=== PATIENT | female | born 1955 | race Caucasian/White ===

== ENCOUNTER 2018-12-04 20:59 | Inpatient (IN) | payer OTHER ==
[~2018-12-04] VITALS: Ht 167.6 cm; Wt 48.0 kg
[~2018-12-04 20:59] MED LIST: CLON-412 PO; CLON2TAB3 PO; OMEP40CA3 PO; PLAVIX; VIT. D; [UNRECOGNIZED DRUG - CODE] PO
[2018-12-04 22:30] VITALS: BP 159/77; PULSE 69; RESP 18
[2018-12-04 23:30] VITALS: Ht 167.6 cm; Wt 48.0 kg
[2018-12-05] MEDS ORDERED: ONDANSETRON 4 MG INJ IV PRN (01:30)
[2018-12-05] MEDS ORDERED: ACETAMINOPHEN 325 MG TAB PO PRN (01:30)
[2018-12-05] MEDS ORDERED: IBUPROFEN 600 MG TAB PO PRN (01:30)
[2018-12-05] MEDS ORDERED: TRIAMCINOLONE ACET 0.1% ORAB 5 GM MM PRN (01:30)
[2018-12-05] MEDS: DEXTROSE 5%-0.9% NACL 1,000 ML IV SCH ×3 (01:34→15:29)
[2018-12-05] MEDS: ACET/BUTAL/CAFF TAB PO PRN (01:34)
[2018-12-05] MEDS: HYDROmorphONE 0.5 MG/0.5 ML SYG IV PRN ×5 (01:34→18:12)
[2018-12-05 02:00] VITALS: BP 155/73; PULSE 67; RESP 17
[2018-12-05] MEDS ORDERED: KETOROLAC 30 MG INJ ONE (02:12)
[2018-12-05] MEDS ORDERED: KETOROLAC 30 MG INJ IV PRN (02:30)
[2018-12-05] MEDS: METOCLOPRAMIDE 5 MG TAB PO PRN (05:41)
[2018-12-05] MEDS: PANTOPRAZOLE (EC) 40 MG TAB PO SCH (05:41)
[2018-12-05 08:00] VITALS: BP 129/64; PULSE 63; RESP 16
[2018-12-05] MEDS: NICOTINE (21 MG/24 HR) PATCH TRANSDERM SCH (09:00)
--- NOTE | 2018-12-05 10:48 | PSY ---
Date/Time of Note Date/Time of Note DATE: 12/05/18 TIME: 10:44 Psychiatric Subjective Eval Consent Pt consented to telemedicine: No Subjective Evaluation Patient location: inpatient History of present illness Patient is a 63-year-old female who is currently on the medical unit. On a [id number] evaluation, patient is mumbling to herself, laughing inappropriately responding to internal stimuli, however she denies any prior psychiatric problem got angry and states that she does not want to be evaluated. Patient states her son's girlfriend is Satan. She was very uncooperative with the interview and states medication is not an option because she does not have mental illness. Patient has very poor insight and poor judgment but contracted for safety Past psychiatric history Denies Hospitalization: other Allergies: Coded Allergies: codeine (Verified Allergy, Severe, 12/04/18) short of breathe hydrocodone (Verified Allergy, Severe, 12/04/18) Short of breathe ibuprofen (Verified Allergy, Severe, shortness of breath, 12/05/18) morphine (Verified Allergy, Severe, 12/04/18) short of breathe oxycodone (Verified Allergy, Severe, 12/04/18) short of breathe tetracycline (Verified Allergy, Severe, RASH, 12/04/18) short of breathe Sulfa (Sulfonamide Antibiotics) (Verified Allergy, Intermediate, SOB, 12/04/18) short of breathe. ketorolac (Verified Allergy, Unknown, 12/05/18) pt states she is also allergic to toradol but unable to state quincy reaction she had. Substance Abuse Substance use: other Substance abuse history: Yes Prior substance abuse treatmen: Yes Social History Marital status: other DPA/Conservatorship: No (Does not meet criteria for 5150) Psychiatric Objective Eval Review of Systems: Review of Systems: Not Applicable Physical Examination: Physical Examination: Not Applicable Appetite: Decreased Energy: Decreased Interest: Decreased Mental Status Examination: Appearance: Other Eye Contact: Fair Psychomotor Activity: Slow Behavior: Cooperative, Agitated Speech: Soft AFFECT: Libile Mood: Anxious Though Process: Linear Thought Content: Delusions Orientation: x3 Cognition: Alert Insight: Mild Attention Span: Distractible Laboratory Results Laboratory Tests Test 12/05/18 05:42 White Blood Count 9.7 10^3/ul Red Blood Count 3.68 10^6/ul Hemoglobin 6.1 g/dl Hematocrit 24.1 % Mean Corpuscular Volume 65.5 fl Mean Corpuscular Hemoglobin 16.6 pg Mean Corpuscular Hemoglobin Concent 25.3 g/dl Red Cell Distribution Width 21.2 % Platelet Count 192 10^3/UL Mean Platelet Volume fl Immature Granulocytes % 0.400 % Neutrophils % 60.8 % Segmented Neutrophils % (Manual) 64 % Band Neutrophils % (Manual) 3 % Lymphocytes % 26.4 % Lymphocytes % (Manual) 27 % Monocytes % 10.0 % Monocytes % (Manual) 5 % Eosinophils % 1.6 % Eosinophils % (Manual) 1 % Basophils % 0.8 % Nucleated Red Blood Cells % 0.0 /100WBC Immature Granulocytes # 0.040 10^3/ul Neutrophils # 5.9 10^3/ul Neutrophils # (Manual) 6.2 10^3/ul Band Neutrophils # 0.2 10^3/ul Lymphocytes (Manual) 2.6 10^3/ul Lymphocytes # 2.6 10^3/ul Monocytes # 1.0 10^3/ul Monocytes # (Manual) 0.4 10^3/ul Eosinophils # 0.2 10^3/ul Basophils # 0.1 10^3/ul Nucleated Red Blood Cells # 0.0 10^3/ul Platelet Estimate NORMAL Giant Platelets 8 % Hypochromasia 3+ Poikilocytosis 1+ Anisocytosis 3+ Microcytosis 3+ Sodium Level 140 mmol/L Potassium Level 3.8 mmol/L Chloride Level 108 mmol/L Carbon Dioxide Level 27 mmol/L Anion Gap 5 Blood Urea Nitrogen 20 mg/dl Creatinine 0.68 mg/dl Est Glomerular Filtrat Rate mL/min > 60 mL/min Glucose Level 108 mg/dl Calcium Level 8.6 mg/dl Total Bilirubin 0.2 mg/dl Direct Bilirubin 0.00 mg/dl Indirect Bilirubin 0.2 mg/dl Aspartate Amino Transf (AST/SGOT) 16 IU/L Alanine Aminotransferase (ALT/SGPT) 23 IU/L Alkaline Phosphatase 82 IU/L Total Protein 5.8 g/dl Albumin 3.0 g/dl Globulin 2.80 g/dl Albumin/Globulin Ratio 1.07 Assessment and Plan Assessment/Diagnosis Diagnosis Psychosis NOS Recommendation/Plan Medication Management No medication ordered, patient does not want any medication Multiple antipsychotics: No Psychotherapy Provide supportive therapy Discharge Disposition: Other Legal Status: Voluntary (Does not meet criteria for 5150) HENRRY TAI NP Dec 05, 2018 10:48
[2018-12-05 15:29] VITALS: BP 137/75; PULSE 72; RESP 18
--- NOTE | 2018-12-05 18:30 | QN ---
Documentation Comment pt seen and examined JOVANNY NUÑEZ MD Dec 05, 2018 18:30
[2018-12-05 19:37] VITALS: BP 115/64; PULSE 70; RESP 17
[2018-12-05] MEDS ORDERED: HYDROmorphONE 0.5 MG/0.5 ML SYG IV ONE (21:27)
[2018-12-05 22:59] VITALS: BP 117/63; PULSE 58; RESP 18
[2018-12-06] MEDS: HYDROmorphONE 0.5 MG/0.5 ML SYG IV PRN ×4 (00:12→15:21)
[2018-12-06 02:38] VITALS: BP 128/63; PULSE 51; RESP 18
[2018-12-06] MEDS: PANTOPRAZOLE (EC) 40 MG TAB PO SCH (05:22)
[2018-12-06] MEDS: METOCLOPRAMIDE 5 MG TAB PO PRN (05:36)
[2018-12-06] MEDS: DEXTROSE 5%-0.9% NACL 1,000 ML IV SCH ×3 (06:36→17:18)
--- NOTE | 2018-12-06 06:55 | HP ---
DATE OF ADMISSION: 12/04/2018 REASON FOR ADMISSION: Abdominal pain. HISTORY OF PRESENT ILLNESS: A 63-year-old female. History is obtained from the chart as the patient is very uncooperative in examination and history. The patient simply says to go out of the room and I even sent GI, Dr. Gonzalez, outside the room. I spoke to the brother over the phone at ____ and par tial history is obtained from him and also from the chart. A 63-year-old female with a past medical history of polysubstance abuse, long extensive history of drug addiction and multiple rehab units, [facility] admission in 2012 with a history of GERD, partial gastrectomy with infusion pump secondary to gastric ulcer, history of cholecystectomy, nicotine addiction, history of substance abuse, presented to the [facility] on 12/04 secondary to chronic abdominal pain. At that time, she was sayi ng she had mild nausea, no fevers, no vomiting. The patient was asking for pain medications there. The patient was noted to have sodium of 141, potassium 3.5, BUN of 24, creatinine 0.85, alkaline phos phatase 121. Troponin 0.044. Hemoglobin of 7.7, BUN of 24, creatinine 0.85, albumin 3.8, lipase was 504. The patient had a CT of the abdomen and pelvis without contrast that showed some over-distende d with debris, surgical sutures along the distal aspect of stomach with possible gastrojejunostomy, t hickening of the wall and anastomosis involving distal stomach and proximal bowel, probable previous left-sided hemicolectomy with additional anastomotic bowel sutures present, 2 mm ____ stone, upper po le of right kidney. The patient was kept n.p.o., started on IV fluids and was transferred for possib le pancreatitis. PAST MEDICAL HISTORY: 1. History of partial gastrectomy secondary to gastric ulcer 25 years ago. 2. History of cholecystectomy. 3. History of left hemicolectomy. 4. GERD. 5. History of sleep walking episodes as listed in the history. 6. History of TIAs. ALLERGIES: THE PATIENT HAS MULTIPLE ALLERGIES, LISTED : 1. SULFA. 2. ACETAMINOPHEN. 3. CODEINE. 4. HYDROCODONE. 5. KETOROLAC. 6. MORPHINE 7. OXYCODONE. 8. TETRACYCLINE. SOCIAL HISTORY: Per manager social responsibility records, the patient had been smoking cigarettes 1 to 2 packs per day. FAMILY HISTORY: Patient has a brother who lives in ____. His name is [place]. Spoke to her brother. Has a son, Ochoa, who has no contact with her. REVIEW OF SYSTEMS: The patient is not giving any meaningful history. PHYSICAL EXAMINATION: VITAL SIGNS: Blood pressure 137/75, afebrile, heart rate 72, respirations 18. The patient did not let me examine her. DIAGNOSTIC DATA: White count 9.7, hemoglobin 6.1, platelet count 192, white. BMP within normal limi t. LFT within normal limit. ASSESSMENT AND PLAN: A 63-year-old female who presented with: 1. Severe abdominal pain and nausea. The patient had elevated lipase as an outside hospital, but CT of the abdomen and pelvis also showed stomach over-distended with debris, surgical sutures along the distal aspect of stomach with possible gastrojejunostomy, thickening at the wall of the anastomosis involving distal stomach and proximal small bowel. 2. Severe anemia, which is microcytic. The patient does not give any meaningful history, not able t o obtain, if the patient has no history of any GI bleeding in the past or currently. 3. Smoking history. 4. Drug addiction history. 5. Possible psychosis. 6. Pancreatitis. PLAN: At this period of time, the patient is admitted to med-surg. The patient has been evaluated b y a psychiatrist, probably needs to be on antipsychotics. We will also check for drug tox. We will also get a CT of the head, B12, folic acid. Patient already received 1 unit of blood. The patient h ad refused GI evaluation. We will reevaluate the patient again, probably in a.m. Rest of the treatm ent will depend on the patient's hospitalization course. Dictated By: JOVANNY OROZCO/RAINA Conf#: [id number] DID#: [id number] CC: JODI MONTOYA MD;*End*
[2018-12-06 08:00] VITALS: BP 131/67; PULSE 62; RESP 16
[2018-12-06] MEDS: NICOTINE (21 MG/24 HR) PATCH TRANSDERM SCH (08:37)
[2018-12-06] MEDS: ACET/BUTAL/CAFF TAB PO PRN (10:09)
[2018-12-06 15:02] VITALS: BP 126/64; PULSE 56; RESP 18
--- NOTE | 2018-12-06 15:16 | PN ---
RICHIE YENA 12/06/18 1515: Date/Time of Note Date/Time of Note DATE: 12/06/18 TIME: 15:09 Assessment/Plan VTE Prophylaxis Risk score (from [facility]0 risk: 2 SCD applied (from [facility]): Yes Pharmacological prophylaxis: NA/contraindicated Pharm contraindication: blood coag disorder Lines/Catheters IV C[facility]ter Type (from [facility]): Peripheral IV Assessment/Plan Hospital Course 1. Severe abdominal pain and nausea. The patient had elevated lipase as an outside hospital, but CT of the abdomen and pelvis also showed stomach over- distended with debris, surgical sutures along the distal aspect of stomach with possible gastrojejunostomy, thickening at the wall of the anastomosis involving distal stomach and proximal small bowel. 2. Severe anemia, which is microcytic. The patient does not give any meaningful history, not able to obtain, if the patient has no history of any GI bleeding in the past or currently. 3. Smoking history. 4. Drug addiction history. 5. Psychosis, pt is disabled. 6. Pancreatitis. 7. Malnourishment 8. Patient refusing medication and GI evaluation. Non compliant Assessment/Plan -low iron level, low B12, folic acid -clear liquid -stool OB order -ENsure TID later -start iron supplements IV -DVT prophylaxis SCD bilaterally, not able to tolerate , pt has anemia -GI prophylaxis Protonix -fall precaution - med-surg. -c/w antipsychotics. - drug tox. unable to collect UA -CT of the head is normal -s/p PRBC 1 unit of blood. - refused GI evaluation. Result Diagram: 12/06/18 0418 12/06/18 0418 Results 24hrs Laboratory Tests Test 12/05/18 15:58 12/05/18 16:03 12/06/18 04:18 Absolute Reticulocyte Count 0.017 L Percent Reticulocyte Count 0.4 L White Blood Count 8.1 6.7 Red Blood Count 3.92 L 4.52 Hemoglobin 7.0 L 8.6 #L Hematocrit 26.6 L 31.2 L Mean Corpuscular Volume 67.9 L 69.0 L Mean Corpuscular Hemoglobin 17.9 L 19.0 L Mean Corpuscular Hemoglobin Concent 26.3 L 27.6 L Red Cell Distribution Width 21.4 H 22.0 H Platelet Count 152 # 174 Mean Platelet Volume 10.1 Immature Granulocytes % 0.200 0.400 Neutrophils % 55.0 58.8 Lymphocytes % 33.0 27.7 Monocytes % 8.9 9.7 Eosinophils % 2.2 2.4 Basophils % 0.7 1.0 Nucleated Red Blood Cells % 0.0 0.0 Immature Granulocytes # 0.020 0.030 Neutrophils # 4.4 3.9 Lymphocytes # 2.7 1.9 Monocytes # 0.7 0.7 Eosinophils # 0.2 0.2 Basophils # 0.1 0.1 Nucleated Red Blood Cells # 0.0 0.0 Sodium Level 137 Potassium Level 3.6 Chloride Level 108 Carbon Dioxide Level 24 Anion Gap 5 Blood Urea Nitrogen 12 Creatinine 0.60 Est Glomerular Filtrat Rate mL/min > 60 Glucose Level 97 Calcium Level 8.5 Phosphorus Level 3.5 Magnesium Level 1.8 Subjective 24 Hr Interval Summary Free Text/Dictation tired Respiratory: no complaints; No pain, No cough, No pleuritic pain, No shortness of breath, No sputum, No wheezing, No other Gastrointestinal: pain Genitourinary: no complaints Skin: no complaints Psychological: no complaints Exam/Review of Systems Exam Vitals Vital Signs Date Temp Pulse Resp B/P (MAP) Pulse Ox O2 O2 Flow FiO2 Time Delivery Rate 12/06/18 98.9 56 18 126/64 97 Room Air 15:02 (84) Intake and Output 12/05/18 12/05/18 12/06/18 1515:00 23:00 07:00 IntakeIntake Total 650 ml 600 ml 1100 ml BalanceBalance 650 ml 600 ml 1100 ml Constitutional: alert, oriented (x2, missed year) Head: other (mauth laceration in corners) Neck: supple Respiratory: diminished breath sounds Cardiovascular: regular rate and rhythm Gastrointestinal: soft Musculoskeletal: muscle weakness Results Result Diagram: 12/06/18 0418 12/06/18 0418 Results 24hrs Laboratory Tests Test 12/05/18 15:58 12/05/18 16:03 12/06/18 04:18 Absolute Reticulocyte Count 0.017 L Percent Reticulocyte Count 0.4 L White Blood Count 8.1 6.7 Red Blood Count 3.92 L 4.52 Hemoglobin 7.0 L 8.6 #L Hematocrit 26.6 L 31.2 L Mean Corpuscular Volume 67.9 L 69.0 L Mean Corpuscular Hemoglobin 17.9 L 19.0 L Mean Corpuscular Hemoglobin Concent 26.3 L 27.6 L Red Cell Distribution Width 21.4 H 22.0 H Platelet Count 152 # 174 Mean Platelet Volume 10.1 Immature Granulocytes % 0.200 0.400 Neutrophils % 55.0 58.8 Lymphocytes % 33.0 27.7 Monocytes % 8.9 9.7 Eosinophils % 2.2 2.4 Basophils % 0.7 1.0 Nucleated Red Blood Cells % 0.0 0.0 Immature Granulocytes # 0.020 0.030 Neutrophils # 4.4 3.9 Lymphocytes # 2.7 1.9 Monocytes # 0.7 0.7 Eosinophils # 0.2 0.2 Basophils # 0.1 0.1 Nucleated Red Blood Cells # 0.0 0.0 Sodium Level 137 Potassium Level 3.6 Chloride Level 108 Carbon Dioxide Level 24 Anion Gap 5 Blood Urea Nitrogen 12 Creatinine 0.60 Est Glomerular Filtrat Rate mL/min > 60 Glucose Level 97 Calcium Level 8.5 Phosphorus Level 3.5 Magnesium Level 1.8 Medications Medication Current Medications Nicotine (Nicoderm 21 Mg/ 24hr) 1 patch DAILY TRANSDERM ; Start 12/05/18 at 09:00 Pantoprazole (Protonix Tab) 40 mg DAILY@06 PO Last administered on 12/06/18 05:22; Admin Dose 40 MG; Start 12/05/18 at 06:00 Metoclopramide HCl (Reglan) 5 mg Q8 PRN PO NAUSEA AND/OR VOMITING Last administered on 12/06/18 05:36; Admin Dose 5 MG; Start 12/05/18 at 01:30 Acetaminophen/ Butalbital/ Caffeine (Fioricet) 1 tab DAILY PRN PO migraine Last administered on 12/06/18 10:09; Admin Dose 1 TAB; Start 12/05/18 at 01:30 Hydromorphone HCl (Dilaudid) 0.5 mg Q4H PRN IV SEVERE PAIN LEVEL 7-10 Last administered on 12/06/18 08:38; Admin Dose 0.5 MG; Start 12/05/18 at 01:30 Dextrose/Sodium Chloride 1,000 ml @ 100 mls/hr Q10H IV Last administered on 12/06/18 06:36; Admin Dose 100 MLS/HR; Start 12/05/18 at 01:30 Ondansetron HCl (Zofran Inj) 4 mg Q6H PRN IV NAUSEA AND/OR VOMITING; Start 12/05/18 at 01:30 Triamcinolone Acetonide (Kenalog In Orabase) 1 applic DAILY PRN MM dentures; Start 12/05/18 at 01:30 Miscellaneous Information Patients own medicat... BID@10,16 XX ; Start 12/05/18 at 10:00 JOVANNY NUÑEZ MD 12/06/18 1706: Assessment/Plan Assessment/Plan Assessment/Plan PT SEEN PT HAS FLAT EFFECT, REFUSING US TO EXAMINED HER, DOES NOT GIVE ANY HISTORY PT NEED PSCY MEDS ADJUSTED BEFORE ANY MEDICAL TREATMENT PANCREATITIS ?? DC NARCOTICS ? ADDCITED TO NARCOTICS PER BROTHER Result Diagram: 12/06/18 0418 12/06/18 0418 MARGUERITE YEN Dec 06, 2018 15:15 JOVANNY NUÑEZ MD Dec 06, 2018 17:06
[2018-12-06] MEDS: CYANOCOBALAMIN 500 MCG TAB PO SCH (15:30)
[2018-12-06] MEDS: SOD FERRIC GLUC COMPLX 125 MG in SOD CHLORIDE 0.9% 100 ML IVPB SCH (17:18)
[2018-12-06] MEDS ORDERED: ACETAMINOPHEN 325 MG TAB PO PRN (17:30)
[2018-12-06 19:44] VITALS: BP 131/63; PULSE 53; RESP 17
[2018-12-07 01:58] VITALS: BP 124/54; PULSE 53; RESP 17
[2018-12-07] MEDS: DEXTROSE 5%-0.9% NACL 1,000 ML IV SCH ×2 (03:49→13:20)
[2018-12-07] MEDS: PANTOPRAZOLE (EC) 40 MG TAB PO SCH (06:27)
[2018-12-07] MEDS: CYANOCOBALAMIN 500 MCG TAB PO SCH (08:08)
[2018-12-07] MEDS: NICOTINE (21 MG/24 HR) PATCH TRANSDERM SCH (08:10)
[2018-12-07 08:52] VITALS: BP 148/66; PULSE 56; RESP 18
[2018-12-07] MEDS ORDERED: POTASSIUM CHLORIDE 20 MEQ POWDER FOR ORAL SOLN PO ONE (11:00)
--- NOTE | 2018-12-07 11:23 | PN ---
Date/Time of Note Date/Time of Note DATE: 12/07/18 TIME: 11:02 Assessment/Plan VTE Prophylaxis Risk score (from [facility])>0 risk: 2 SCD applied (from [facility]): No SCD contraindicated: low risk/ambulating Pharmacological prophylaxis: NA/contraindicated Pharm contraindication: anticoag not tolerated Lines/Catheters IV [facility] Type (from [email or web address] Peripheral IV Assessment/Plan Hospital Course 1. Severe abdominal pain and nausea. No abdominal pain, no nausea. The patient had elevated lipase as an outside hospital, but CT of the abdomen and pelvis also showed stomach over-distended with debris, surgical sutures along the distal aspect of stomach with possible gastrojejunostomy, thickening at the wall of the anastomosis involving distal stomach and proximal small bowel . Hx of 2 abdominal surgeries , more likely Joann --Y gastrostomy 2. Severe anemia, which is microcytic. C/w ferrlicit, iron supplements 3. Smoking history, on Nicotine patch 4. Drug addiction history. 5. Hx of cholecystectomy 6. Pancreatitis. 7. Malnourishment 8. Patient refusing medication and GI evaluation. Non compliant 9. Hx of baclofen, or other pump Assessment/Plan -stool OB -constipation 2 days pt id non copliant -pt is homeless, looking for placement with Nurse help -potassium supplement once -advance diet to full, then to soft -DVT prophylaxis SCD bilaterally -GI prophylaxis Protonix PO/IV -fall precaution -Discussed diagnosis, treatment, risks benefits, side effects and alternate treatment. -Medication, their effects and side effects including metabolic, affect on heart were discussed. -Compliance was addressed. -Care coordinated with Dr Chavez Result Diagram: 12/07/18 0424 12/07/18 0424 Results 24hrs Laboratory Tests Test 12/07/18 04:24 White Blood Count 5.8 Red Blood Count 4.64 Hemoglobin 8.8 L Hematocrit 32.1 L Mean Corpuscular Volume 69.2 L Mean Corpuscular Hemoglobin 19.0 L Mean Corpuscular Hemoglobin Concent 27.4 L Red Cell Distribution Width 22.4 H Platelet Count 196 Mean Platelet Volume 10.1 Immature Granulocytes % 0.300 Neutrophils % 61.4 Lymphocytes % 23.7 Monocytes % 9.5 Eosinophils % 4.1 Basophils % 1.0 Nucleated Red Blood Cells % 0.7 H Immature Granulocytes # 0.020 Neutrophils # 3.6 Lymphocytes # 1.4 Monocytes # 0.6 Eosinophils # 0.2 Basophils # 0.1 Nucleated Red Blood Cells # 0.0 Sodium Level 140 Potassium Level 3.4 L Chloride Level 112 H Carbon Dioxide Level 22 Anion Gap 6 Blood Urea Nitrogen 9 Creatinine 0.63 Est Glomerular Filtrat Rate mL/min > 60 Glucose Level 115 Calcium Level 8.4 Subjective 24 Hr Interval Summary Free Text/Dictation Constitutional: No fever, cough or chills. EYE: No eye disease. No visual problems. CARDIOVASCULAR: No chest pain. No Tachycardia. No Palpitation. RESPIRATORY: No breathing problems. No COPD or disease of respiration. GASTROINTESTINAL: No Nausea. No Vomiting. No constipation. stool 12/05/2018 Endocrine: No excessive thirst, No polyuria, No hot intolerance. No cold intolerance. MUSCULO-SKELETAL: No bone or Joint disease. NEUROLOGICAL: Alert oriented in person, place, time and situation. No Headache, Confusion. No Seizures. No problem with balance. Exam/Review of Systems Exam Vitals Vital Signs Date Temp Pulse Resp B/P (MAP) Pulse Ox O2 O2 Flow FiO2 Time Delivery Rate 12/07/18 98.0 56 18 148/66 96 08:52 (93) 12/06/18 Room Air 19:44 Intake and Output 12/06/18 12/06/18 12/07/18 1515:00 23:00 07:00 IntakeIntake Total 1000 ml 1118 ml BalanceBalance 1000 ml 1118 ml Exam No acute distress, no events overnight. Eyes: anicteric, EOM's intact, some pallor Nose: no rhinorrhea Neck: supple, no thyromegaly, no carotid bruits Lungs: clear bilaterally, decreased. CVS: regular rate and rhythm, no murmurs Abdomen: soft, bowel sounds present, no hepatosplenomegally, no masses, no rebound or guarding, surgical scars. Rectal: differed. External genitalia: no lesions. Extremities: no edema, DP palpable Neuro: alert and oriented x 3 Gait: normal Motor strength: 4+/4+ Sensory exam is normal Deep tendon reflexes: normal, Babisky reflexes are absent bilaterally Skin: no lesions Results Results 24hrs Laboratory Tests Test 12/07/18 04:24 White Blood Count 5.8 Red Blood Count 4.64 Hemoglobin 8.8 L Hematocrit 32.1 L Mean Corpuscular Volume 69.2 L Mean Corpuscular Hemoglobin 19.0 L Mean Corpuscular Hemoglobin Concent 27.4 L Red Cell Distribution Width 22.4 H Platelet Count 196 Mean Platelet Volume 10.1 Immature Granulocytes % 0.300 Neutrophils % 61.4 Lymphocytes % 23.7 Monocytes % 9.5 Eosinophils % 4.1 Basophils % 1.0 Nucleated Red Blood Cells % 0.7 H Immature Granulocytes # 0.020 Neutrophils # 3.6 Lymphocytes # 1.4 Monocytes # 0.6 Eosinophils # 0.2 Basophils # 0.1 Nucleated Red Blood Cells # 0.0 Sodium Level 140 Potassium Level 3.4 L Chloride Level 112 H Carbon Dioxide Level 22 Anion Gap 6 Blood Urea Nitrogen 9 Creatinine 0.63 Est Glomerular Filtrat Rate mL/min > 60 Glucose Level 115 Calcium Level 8.4 Medications Medication Current Medications Nicotine (Nicoderm 21 Mg/ 24hr) 1 patch DAILY TRANSDERM ; Start 12/05/18 at 09:00 Pantoprazole (Protonix Tab) 40 mg DAILY@06 PO Last administered on 12/07/18at 06:27; Admin Dose 40 MG; Start 12/05/18 at 06:00 Metoclopramide HCl (Reglan) 5 mg Q8 PRN PO NAUSEA AND/OR VOMITING Last administered on 12/06/18at 05:36; Admin Dose 5 MG; Start 12/05/18 at 01:30 Acetaminophen/ Butalbital/ Caffeine (Fioricet) 1 tab DAILY PRN PO migraine Last administered on 12/06/18at 10:09; Admin Dose 1 TAB; Start 12/05/18 at 01:30 Dextrose/Sodium Chloride 1,000 ml @ 100 mls/hr Q10H IV Last administered on 12/07/18at 03:49; Admin Dose 100 MLS/HR; Start 12/05/18 at 01:30 Ondansetron HCl (Zofran Inj) 4 mg Q6H PRN IV NAUSEA AND/OR VOMITING; Start 12/05/18 at 01:30 Triamcinolone Acetonide (Kenalog In Orabase) 1 applic DAILY PRN MM dentures; Start 12/05/18 at 01:30 Miscellaneous Information Patients own medicat... BID@10,16 XX ; Start 12/05/18 at 10:00 Ferric Sodium Gluconate Complex 125 mg/Sodium Chloride 110 ml @ 110 mls/hr DAILY@1300 IVPB Last administered on 12/06/18at 17:18; Admin Dose 110 MLS/HR; Start 12/06/18 at 17:00; Stop 12/10/18 at 13:59 Cyanocobalamin (Vitamin B12) 500 mcg DAILY PO ; Start 12/06/18 at 15:30 Acetaminophen (Tylenol Tab) 650 mg Q4H PRN PO MILD PAIN(1-3)OR ELEVATED TEMP Last administered on 12/07/18at 02:05; Admin Dose 650 MG; Start 12/06/18 at 17:30 MARGUERITE YEN Dec 07, 2018 11:19
[2018-12-07] MEDS: ACET/BUTAL/CAFF TAB PO PRN ×2 (11:35→23:31)
[2018-12-07] MEDS: METOCLOPRAMIDE 5 MG TAB PO PRN ×2 (11:35→17:17)
[2018-12-07] MEDS: SOD FERRIC GLUC COMPLX 125 MG in SOD CHLORIDE 0.9% 100 ML IVPB SCH (13:12)
[2018-12-07 15:11] VITALS: BP 142/67; PULSE 53; RESP 20
[2018-12-07] MEDS: CREON (12k-38k-60k) 1 CAP PO SCH (18:20)
[2018-12-07 20:11] VITALS: BP 149/70; PULSE 67; RESP 18
[2018-12-08 01:36] VITALS: BP 156/78; PULSE 70; RESP 18
[2018-12-08] MEDS: PANTOPRAZOLE (EC) 40 MG TAB PO SCH (05:55)
[2018-12-08] MEDS: NICOTINE (21 MG/24 HR) PATCH TRANSDERM SCH (07:48)
[2018-12-08] MEDS: CYANOCOBALAMIN 500 MCG TAB PO SCH (07:48)
[2018-12-08] MEDS: CREON (12k-38k-60k) 1 CAP PO SCH ×3 (07:53→17:57)
[2018-12-08] MEDS: METOCLOPRAMIDE 5 MG TAB PO PRN (07:53)
[2018-12-08 08:00] VITALS: PULSE 75; RESP 18
[2018-12-08] MEDS: ACET/BUTAL/CAFF TAB PO PRN (11:09)
--- NOTE | 2018-12-08 12:12 | PN ---
Date/Time of Note Date/Time of Note DATE: 12/08/18 TIME: 12:12 Assessment/Plan VTE Prophylaxis Risk score (from Nsg)>0 risk: 2 SCD applied (from Ns): No SCD contraindicated: low risk/ambulating Pharmacological prophylaxis: NA/contraindicated Pharm contraindication: low risk/ambulating Lines/Catheters IV Catheter Type (from Nrs): Peripheral IV Assessment/Plan Hospital Course 1. Severe abdominal pain and nausea. No abdominal pain, no nausea right now, tolerating soft diet foot. The patient had elevated lipase as an outside hospital, but CT of the abdomen and pelvis also showed stomach over-distended with debris, surgical sutures along the distal aspect of stomach with possible gastrojejunostomy, thickening at the wall of the anastomosis involving distal stomach and proximal small bowel. Hx of 2 abdominal surgeries , more likely Joann --Y gastrostomy 2. Severe anemia, which is microcytic. C/w ferrlicit, iron supplements 3. Smoking history, on Nicotine patch. Refused 4. Drug addiction history. 5. Hx of cholecystectomy 6. Pancreatitis, resolved. 7. Malnourishment 8. Patient refusing medication and GI evaluation. Non compliant 9. Hx of baclofen, or other pump Assessment/Plan -stool OB pending Patient is ambulating Lipase is normal Lab work reviewed Social service home for homelessness Patient has soft diet food tolerated well -constipation 2 days, resolved -pt is homeless, looking for placement with Nurse help -potassium supplement once -DVT prophylaxis SCD bilaterally -GI prophylaxis Protonix PO/IV -fall precaution -Discussed diagnosis, treatment, risks benefits, side effects and alternate treatment. -Medication nicotine patch, their effects and side effects including metabolic, affect on heart were discussed. -Compliance for non-smoking in hospital was addressed. -Care coordinated with Dr Chavez Result Diagram: 12/08/188 12/08/18427 Results 24hrs Laboratory Tests Test 12/08/18 04:28 12/08/18 05:51 White Blood Count 10.5 # Red Blood Count 4.73 Hemoglobin 9.0 L Hematocrit 33.1 L Mean Corpuscular Volume 70.0 L Mean Corpuscular Hemoglobin 19.0 L Mean Corpuscular Hemoglobin Concent 27.2 L Red Cell Distribution Width 24.3 H Platelet Count 240 # Mean Platelet Volume Immature Granulocytes % 0.900 H Neutrophils % 68.5 Lymphocytes % 19.3 Monocytes % 8.1 Eosinophils % 2.2 Basophils % 1.0 Nucleated Red Blood Cells % 0.6 H Immature Granulocytes # 0.100 H Neutrophils # 7.2 Lymphocytes # 2.0 Monocytes # 0.9 Eosinophils # 0.2 Basophils # 0.1 Nucleated Red Blood Cells # 0.1 H Sodium Level 143 Potassium Level 3.4 L Chloride Level 115 H Carbon Dioxide Level 20 L Anion Gap 8 Blood Urea Nitrogen 16 Creatinine 0.82 Est Glomerular Filtrat Rate mL/min > 60 Glucose Level 118 Calcium Level 8.9 Total Bilirubin 0.2 Direct Bilirubin 0.00 Indirect Bilirubin 0.2 Aspartate Amino Transf (AST/SGOT) 51 H Alanine Aminotransferase (ALT/SGPT) 87 H Alkaline Phosphatase 172 H Total Protein 5.9 L Albumin 3.0 L Globulin 2.90 Albumin/Globulin Ratio 1.03 Lipase 191 Lab Scanned Report BLOOD TRANSFUSION Subjective 24 Hr Interval Summary Free Text/Dictation Constitutional: No fever, cough or chills. EYE: No eye disease. No visual problems. CARDIOVASCULAR: No chest pain. NoTachycardia. No Palpitation. RESPIRATORY: No breathing problems. No COPD or disease of respiration. Smoking cigarettes GASTROINTESTINAL: No Nausea. No Vomiting. No constipation. Decreased abdominal pain Endocrine: No excessive thirst, No polyuria, No hot intolerance. No cold intolerance. MUSCULO-SKELETAL: No bone or Joint disease. NEUROLOGICAL: Alert oriented in person, place, time and situation. No Headache, Confusion. No Seizures. No problem with balance. Exam/Review of Systems Exam Vitals Vital Signs Date Temp Pulse Resp B/P (MAP) Pulse Ox O2 O2 Flow FiO2 Time Delivery Rate 12/08/18 98.6 70 18 156/78 97 01:36 (104) 12/06/18 Room Air 19:44 Intake and Output 12/07/18 12/07/18 12/08/18 1515:00 23:00 07:00 IntakeIntake Total 1990 ml 1590 ml 500 ml OutputOutput Total 800 ml 500 ml 1750 ml BalanceBalance 1190 ml 1090 ml -1250 ml Exam No acute distress, no events overnight. thin , frail Eyes: anicteric, EOM's intact, no pallor Nose: no rhinorrhea Neck: supple, no thyromegaly, no carotid bruits Lungs: clear bilaterally, decreased. CVS: regular rate and rhythm, no murmurs Abdomen: soft, bowel sounds present, no hepatosplenomegally, no masses, no rebound or guarding. Numerous healed scars, denied pain on palpation pancreatic area, left upper abdominal quadrant Rectal: differed. External genitalia: no lesions. No Nation Extremities: no edema, DP palpable Neuro: alert and oriented x 3 Gait: Unable to assess, medical patient is in bed Motor strenght: 5+/5+ Sensory exam is normal Deep tendon reflexes: normal, Babisky reflexes are absent bilaterally Skin: no lesions, pale Results Results 24hrs Laboratory Tests Test 12/08/18 04:28 12/08/18 05:51 White Blood Count 10.5 # Red Blood Count 4.73 Hemoglobin 9.0 L Hematocrit 33.1 L Mean Corpuscular Volume 70.0 L Mean Corpuscular Hemoglobin 19.0 L Mean Corpuscular Hemoglobin Concent 27.2 L Red Cell Distribution Width 24.3 H Platelet Count 240 # Mean Platelet Volume Immature Granulocytes % 0.900 H Neutrophils % 68.5 Lymphocytes % 19.3 Monocytes % 8.1 Eosinophils % 2.2 Basophils % 1.0 Nucleated Red Blood Cells % 0.6 H Immature Granulocytes # 0.100 H Neutrophils # 7.2 Lymphocytes # 2.0 Monocytes # 0.9 Eosinophils # 0.2 Basophils # 0.1 Nucleated Red Blood Cells # 0.1 H Sodium Level 143 Potassium Level 3.4 L Chloride Level 115 H Carbon Dioxide Level 20 L Anion Gap 8 Blood Urea Nitrogen 16 Creatinine 0.82 Est Glomerular Filtrat Rate mL/min > 60 Glucose Level 118 Calcium Level 8.9 Total Bilirubin 0.2 Direct Bilirubin 0.00 Indirect Bilirubin 0.2 Aspartate Amino Transf (AST/SGOT) 51 H Alanine Aminotransferase (ALT/SGPT) 87 H Alkaline Phosphatase 172 H Total Protein 5.9 L Albumin 3.0 L Globulin 2.90 Albumin/Globulin Ratio 1.03 Lipase 191 Lab Scanned Report BLOOD TRANSFUSION Medications Medication Current Medications Nicotine (Nicoderm 21 Mg/ 24hr) 1 patch DAILY TRANSDERM ; Start 12/05/18 at 09:00 Pantoprazole (Protonix Tab) 40 mg DAILY@06 PO Last administered on 12/08/18at 05:55; Admin Dose 40 MG; Start 12/05/18 at 06:00 Metoclopramide HCl (Reglan) 5 mg Q8 PRN PO NAUSEA AND/OR VOMITING Last administered on 12/08/18 07:53; Admin Dose 5 MG; Start 12/05/18 at 01:30 Ondansetron HCl (Zofran Inj) 4 mg Q6H PRN IV NAUSEA AND/OR VOMITING; Start 12/05/18 at 01:30 Triamcinolone Acetonide (Kenalog In Orabase) 1 applic DAILY PRN MM dentures; Start 12/05/18 at 01:30 Miscellaneous Information Patients own medicat... BID@10,16 XX ; Start 12/05/18 at 10:00 Ferric Sodium Gluconate Complex 125 mg/Sodium Chloride 110 ml @ 110 mls/hr DAILY@1300 IVPB Last administered on 12/07/18 13:12; Admin Dose 110 MLS/HR; Start 12/06/18 at 17:00; Stop 12/10/18 at 13:59 Cyanocobalamin (Vitamin B12) 500 mcg DAILY PO ; Start 12/06/18 at 15:30 Acetaminophen (Tylenol Tab) 650 mg Q4H PRN PO MILD PAIN(1-3)OR ELEVATED TEMP Last administered on 12/07/18 02:05; Admin Dose 650 MG; Start 12/06/18 at 17:30 Acetaminophen/ Butalbital/ Caffeine (Fioricet) 1 tab BID PRN PO migraine Last administered on 12/08/18 11:09; Admin Dose 1 TAB; Start 12/07/18 at 18:00 Amylase/Lipase/ Protease (CREON (12k-38k-60k)) 1 cap WITH MEALS PO Last administered on 12/08/18 07:53; Admin Dose 1 CAP; Start 12/07/18 at 18:00 MARGUERITE YEN Dec 08, 2018 12:12
[2018-12-08] MEDS ORDERED: POTASSIUM CHLORIDE 20 MEQ POWDER FOR ORAL SOLN PO ONE (12:30)
[2018-12-08] MEDS: SOD FERRIC GLUC COMPLX 125 MG in SOD CHLORIDE 0.9% 100 ML IVPB SCH (13:00)
--- NOTE | 2018-12-08 15:12 | PDOCDIS ---
Discharge Instructions DIAGNOSIS Discharge Diagnosis abdominal pain CONDITION [id number] Patient Condition: [id number] Stable ACTIVITY: [id number] Activity Restrictions: [id number] Slowly Increase Activity Rest between Activity Avoid heavy lifting FOLLOW UP/APPOINTMENTS Follow-up Plan PCP 1 week MARGUERITE YEN Dec 08, 2018 15:12
[2018-12-08] MEDS ORDERED: METO5TAB2 PO (15:18)
[2018-12-08] MEDS ORDERED: CYAN500T46 PO (15:18)
[2018-12-08] MEDS ORDERED: FERR325T5 PO (15:18)
[2018-12-08] MEDS ORDERED: NICO-546 TRANSDERM (15:18)
[2018-12-08] MEDS ORDERED: LIPA1CAP4 PO (15:18)
--- NOTE | 2018-12-08 15:23 | DS ---
RICHIE YENA 12/08/18 1523: Date/Time of Note Date/Time of Note DATE: 12/08/18 TIME: 15:23 Discharge Summary Admission/Discharge Info Admit Date/Time Dec 04, 2018 at 22:18 Discharge Date/Time Discharge Diagnosis abdominal pain Patient Condition: Stable Consults psyc. [employer]OR [employer] Hospital Course A 63-year-old female. History is obtained from the chart as the patient is very uncooperative in examination and history. The patient simply says to go out of the room and I even sent GI, Dr. Gonzalez, outside the room. I spoke to the brother over the phone at the nursing station and partial history is obtained from him and also from the chart. A 63-year-old female with a past medical history of polysubstance abuse, long extensive history of drug addiction and multiple rehab units, last here admission in 2012 with a history of GERD, partial gastrectomy with infusion pump secondary to gastric ulcer, history of cholecystectomy, nicotine addiction, history of substance abuse, presented to the [facility] on 12/04 secondary to chronic abdominal pain. At that time, she was saying she had mild nausea, no fevers, no vomiting. The patient was asking for pain medications there. The patient was noted to have sodium of 141, potassium 3.5, BUN of 24, creatinine 0.85, alkaline phosphatase 121. Troponin 0.044. Hemoglobin of 7.7, BUN of 24, creatinine 0.85, albumin 3.8, lipase was 504. The patient had a CT of the abdomen and pelvis without contrast that showed some over-distended with debris, surgical sutures along the distal aspect of stomach with possible gastrojejunostomy, thickening of the wall and anastomosis involving distal stomach and proximal bowel, probable previous left- sided hemicolectomy with additional anastomotic bowel sutures present, 2 mm renal stone, upper pole of right kidney. The patient was kept n.p.o., started on IV fluids and was transferred for possible pancreatitis. PAST MEDICAL HISTORY: 1. History of partial gastrectomy secondary to gastric ulcer 25 years ago. 2. History of cholecystectomy. 3. History of left hemicolectomy. 4. GERD. 5. History of sleep walking episodes as listed in the history. 6. History of TIAs. ALLERGIES: THE PATIENT HAS MULTIPLE ALLERGIES, LISTED : 1. SULFA. 2. ACETAMINOPHEN. 3. CODEINE. 4. HYDROCODONE. 5. KETOROLAC. 6. MORPHINE 7. OXYCODONE. 8. TETRACYCLINE. SOCIAL HISTORY: Per social worker psychiatric records, the patient had been smoking cigarettes 1 to 2 packs per day. impressions 1. Severe abdominal pain and nausea. 2. Severe anemia, which is microcytic. C/w ferrlicit, iron supplements 3. Smoking history, on Nicotine patch. Refused 4. Drug addiction history. 5. Hx of cholecystectomy 6. Pancreatitis, resolved. 7. Malnourishment 8. Patient refusing medication and GI evaluation. Non compliant 9. Hx of baclofen, or other pump During hospitalization patient was seen daily . The patient had elevated lipase as an outside hospital, but CT of the abdomen and pelvis also showed stomach over-distended with debris, surgical sutures along the distal aspect of stomach with possible gastrojejunostomy, thickening at the wall of the anastomosis involving distal stomach and proximal small bowel. She had 2 abdominal surgeries , more likely Joann --Y gastrostomy. on the second day she reported no abdominal pain, no nausea, tolerating soft diet foot. [employer] Iraida, psychiatry seen the pt as well. She did not ordered any medications. Pt pain was controlled, but she requested more medications. Patient is clinically improved after 2 days. For anemia we started ferrlicit IV. Patient was able to tolerate soft regular diet, was able to ambulate, and does not require an additional oxygenation. Plan of care was discussed with Dr. Chavez/Dr. Nuñez. During her stay she was not compliant with medication or regime. In stable condition patient was discharged. Patient was instructed to continue iron supplements. Patient was instructed to see primary care provider in 1 week. No narcotic were given due to recent dispensing of Butalbital 90 tablets for 15 days. pt denied opioid dependency but required higher doses of pain medications. All questions w ere answered and all problems were addressed. Home Meds Active Scripts Cyanocobalamin* (Vitamin B12*) 500 Mcg Tab, 500 MCG PO DAILY for 90 Days, TAB Prov:MARGUERITE YEN NP 12/08/18 Metoclopramide Hcl* (Metoclopramide Hcl*) 5 Mg Tablet, 5 MG PO Q8 PRN for NAUSEA AND/OR VOMITING for 14 Days, TAB Prov:MARGUERITE YEN NP 12/08/18 Liuvwc-Wyrgtmen-Doiaazi* (Creon DR* 12,000) 12,000 L-38,000-60,000 Unit Capsule., 1 CAP PO WITH MEALS for 30 Days Prov:MARGUERITE YEN NP 12/08/18 Ferrous Sulfate (Ferrous Sulfate) 325 Mg Tablet., 325 MG PO BID for 30 Days Prov:MARGUERITE YEN NP 12/08/18 Nicotine* (Nicotine* Patch) 21 mg/day Patch, 1 PATCH TRANSDERM DAILY for 30 Days Prov:MARGUERITE YEN NP 12/08/18 Reported Medications Omeprazole* (Prilosec*) 40 Mg Capsule., 40 MG PO DAILY 12/31/12 [Plavix] No Conflict Check 12/31/12 [Vit. D] No Conflict Check 09/02/12 Discontinued Reported Medications Acetamin/Butalbital/Caffeine (Fioricet) 1 Tab Tab, 1 TAB PO Q4 PRN 01/01/13 Clonazepam* (Klonopin*) 1 Mg Tablet, 1 MG PO PRN 12/31/12 Clonazepam (Klonopin) 2 Mg/Tab Tab.rapdis, 3 MG PO DAILY 09/02/12 Follow-up Plan PCP 1 week Primary Care Provider Gwendolyn Herrera MD Time spent on discharge: < 30 minutes Pending Labs Laboratory Tests Test 12/08/18 04:28 12/08/18 05:51 White Blood Count 10.5 10^3/ul (4.8-10.8) Red Blood Count 4.73 10^6/ul (4.20-5.40) Hemoglobin 9.0 g/dl (12.0-16.0) Hematocrit 33.1 % (37.0-47.0) Mean Corpuscular Volume 70.0 fl (82.0-101.0) Mean Corpuscular Hemoglobin 19.0 pg (29.0-33.0) Mean Corpuscular 27.2 g/dl (32.0-37.0) Hemoglobin Concent Red Cell Distribution Width 24.3 % (11.5-14.5) Platelet Count 240 10^3/UL (140-415) Mean Platelet Volume fl (7.4-10.4) Immature Granulocytes % 0.900 % (0.001-0.429) Neutrophils % 68.5 % (39.0-77.0) Lymphocytes % 19.3 % (15.0-51.0) Monocytes % 8.1 % (0.0-11.0) Eosinophils % 2.2 % (0.0-7.0) Basophils % 1.0 % (0.0-2.0) Nucleated Red Blood Cells % 0.6 /100WBC (0.0-0.0) Immature Granulocytes # 0.100 10^3/ul (0.0-0.031) Neutrophils # 7.2 10^3/ul (1.6-7.5) Lymphocytes # 2.0 10^3/ul (0.8-2.9) Monocytes # 0.9 10^3/ul (0.3-0.9) Eosinophils # 0.2 10^3/ul (0.0-0.5) Basophils # 0.1 10^3/ul (0.0-0.1) Nucleated Red Blood Cells # 0.1 10^3/ul (0.0-0.0) Sodium Level 143 mmol/L (135-144) Potassium Level 3.4 mmol/L (3.5-5.1) Chloride Level 115 mmol/L (97-110) Carbon Dioxide Level 20 mmol/L (21-31) Anion Gap 8 (5-13) Blood Urea Nitrogen 16 mg/dl (7-20) Creatinine 0.82 mg/dl (0.44-1.00) Est Glomerular Filtrat Rate mL/min > 60 mL/min (>60) Glucose Level 118 mg/dl (70-220) Calcium Level 8.9 mg/dl (8.4-10.2) Total Bilirubin 0.2 mg/dl (0.2-1.3) Direct Bilirubin 0.00 mg/dl (0.00-0.20) Indirect Bilirubin 0.2 mg/dl (0-1.1) Aspartate Amino Transf (AST/SGOT) 51 IU/L (15-46) Alanine 87 IU/L (13-69) Aminotransferase (ALT/SGPT) Alkaline Phosphatase 172 IU/L (42-121) Total Protein 5.9 g/dl (6.1-8.1) Albumin 3.0 g/dl (3.3-4.9) Globulin 2.90 g/dl (1.3-3.2) Albumin/Globulin Ratio 1.03 Lipase 191 U/L (23-300) Lab Scanned Report BLOOD TRANSFUSION JOVANNY NUÑEZ MD 12/10/18 1517: Discharge Summary Admission/Discharge Info Hospital Course discharged was delayed due to placement, pt gave us address, pt was discharged there pt was very rude during hospoital stay refused to be exmained and seen refused to see pscy , she knew what she was doing didnt meet criteria for hold Home Meds Active Scripts Cyanocobalamin* (Vitamin B12*) 500 Mcg Tab, 500 MCG PO DAILY for 90 Days, TAB Prov:MARGUERITE YEN NP 12/08/18 Metoclopramide Hcl* (Metoclopramide Hcl*) 5 Mg Tablet, 5 MG PO Q8 PRN for NAUSEA AND/OR VOMITING for 14 Days, TAB Prov:MARGUERITE YEN NP 12/08/18 Tarqlk-Mmxhrouj-Jbdeddg* (Creon * 12,000) 12,000 L-38,000-60,000 Unit Capsule., 1 CAP PO WITH MEALS for 30 Days Prov:MARGUERITE YEN NP 12/08/18 Ferrous Sulfate (Ferrous Sulfate) 325 Mg Tablet., 325 MG PO BID for 30 Days Prov:MARGUERITE YEN NP 12/08/18 Nicotine* (Nicotine* Patch) 21 mg/day Patch, 1 PATCH TRANSDERM DAILY for 30 Days Prov:MARGUERITE YEN NP 12/08/18 Reported Medications Omeprazole* (Prilosec*) 40 Mg Capsule., 40 MG PO DAILY 12/31/12 [Plavix] No Conflict Check 12/31/12 [Vit. D] No Conflict Check 09/02/12 Discontinued Reported Medications Acetamin/Butalbital/Caffeine (Fioricet) 1 Tab Tab, 1 TAB PO Q4 PRN 01/01/13 Clonazepam* (Klonopin*) 1 Mg Tablet, 1 MG PO PRN 12/31/12 Clonazepam (Klonopin) 2 Mg/Tab Tab.rapdis, 3 MG PO DAILY 09/02/12 MARGUERITE YEN Dec 08, 2018 15:23 JOVANNY NUÑEZ MD Dec 10, 2018 15:17
[2018-12-08 19:55] VITALS: BP 162/80; PULSE 75; RESP 17
[2018-12-08 20:56] VITALS: BP 142/90; PULSE 75; RESP 17
[2018-12-09 02:30] VITALS: BP 142/80; PULSE 71; RESP 17
[2018-12-09] MEDS: PANTOPRAZOLE (EC) 40 MG TAB PO SCH (05:50)
[2018-12-09] MEDS: METOCLOPRAMIDE 5 MG TAB PO PRN (05:52)
[2018-12-09] MEDS: CREON (12k-38k-60k) 1 CAP PO SCH ×3 (08:00→17:34)
[2018-12-09] MEDS: CYANOCOBALAMIN 500 MCG TAB PO SCH (08:10)
[2018-12-09] MEDS: NICOTINE (21 MG/24 HR) PATCH TRANSDERM SCH (08:10)
[2018-12-09] MEDS: ACET/BUTAL/CAFF TAB PO PRN ×3 (09:10→16:06)
[2018-12-09] MEDS ORDERED: POTASSIUM CHLORIDE (SR) 20 MEQ TAB PO STA (10:17)
[2018-12-09] MEDS: SOD FERRIC GLUC COMPLX 125 MG in SOD CHLORIDE 0.9% 100 ML IVPB SCH (12:13)
--- NOTE | 2018-12-09 14:51 | PN ---
Date/Time of Note Date/Time of Note DATE: 12/09/18 TIME: 14:48 Assessment/Plan VTE Prophylaxis Risk score (from Nsg)>0 risk: 3 SCD applied (from Ns): No SCD contraindicated: low risk/ambulating Pharmacological prophylaxis: NA/contraindicated Pharm contraindication: low risk/ambulating Lines/Catheters IV Catheter Type (from Nrs): Saline Lock Assessment/Plan Assessment/Plan 1 Severe abdominal pain and nausea. No abdominal pain, no nausea right now, tolerating soft diet foot. The patient had elevated lipase as an outside hospital, but CT of the abdomen and pelvis also showed stomach over-distended with debris, surgical sutures along the distal aspect of stomach with possible gastrojejunostomy, thickening at the wall of the anastomosis involving distal stomach and proximal small bowel. Hx of 2 abdominal surgeries , more likely Joann --Y gastrostomy resolved 2. Severe anemia, which is microcytic. C/w ferrlicit, iron supplements 3. Smoking history, on Nicotine patch. Refused 4. Drug addiction history. 5. Hx of cholecystectomy 6. Pancreatitis, resolved. 7. Malnourishment 8. Patient refusing medication and GI evaluation. Non compliant 9. Hx of baclofen, or other pump Assessment/Plan Patient is ambulating Lipase is normal Lab work reviewed Social service home for homelessness Patient has soft diet food tolerated well -pt is homeless, looking for placement with Nurse help, spoke to sw plan would be recuperative care -potassium supplement once> pt refused, pt said that she has right to refuse -DVT prophylaxis SCD bilaterally -GI prophylaxis Protonix PO/IV -fall precaution -Discussed diagnosis, treatment, risks benefits, side effects and alternate treatment. -Medication nicotine patch, their effects and side effects including metabolic, affect on heart were discussed. pt was seen by [facility] Before, no criteria for hold per pscy pt is very clear of her intentions, goals dc planning to recupperative care Result Diagram: 12/09/18 0428 12/09/18 0423 Results 24hrs Laboratory Tests Test 12/09/18 04:23 12/09/18 04:28 Sodium Level 141 Potassium Level 3.1 L Chloride Level 106 Carbon Dioxide Level 24 Anion Gap 11 Blood Urea Nitrogen 12 Creatinine 0.78 Est Glomerular Filtrat Rate mL/min > 60 Glucose Level 116 Calcium Level 9.7 White Blood Count 9.0 Red Blood Count 5.24 Hemoglobin 10.2 L Hematocrit 36.6 L Mean Corpuscular Volume 69.8 L Mean Corpuscular Hemoglobin 19.5 L Mean Corpuscular Hemoglobin Concent 27.9 L Red Cell Distribution Width 26.0 H Platelet Count 237 Mean Platelet Volume Immature Granulocytes % 0.700 H Neutrophils % 71.2 Lymphocytes % 19.5 Monocytes % 6.6 Eosinophils % 1.2 Basophils % 0.8 Nucleated Red Blood Cells % 0.3 H Immature Granulocytes # 0.060 H Neutrophils # 6.4 Lymphocytes # 1.8 Monocytes # 0.6 Eosinophils # 0.1 Basophils # 0.1 Nucleated Red Blood Cells # 0.0 Subjective 24 Hr Interval Summary Free Text/Dictation She has been refusing potassium replacement. Went with the foster care social worker spoke and talked with the patient. Patient said that she does not believe in taking any medications. Believes an organic staff. He just she came to the hospital because she had the option of going to the hospital versus intermediate so she rather came to the hospital Does not want to be examined by anybody just want her migraien pills Exam/Review of Systems Exam Vitals Vital Signs Date Temp Pulse Resp B/P (MAP) Pulse Ox O2 O2 Flow FiO2 Time Delivery Rate 12/09/18 95.3 71 17 142/80 96 Room Air 02:30 (100) Intake and Output 12/08/18 12/08/18 12/09/18 1515:00 23:00 07:00 IntakeIntake Total 480 ml 440 ml BalanceBalance 480 ml 440 ml Exam refusing exam Results Results 24hrs Laboratory Tests Test 12/09/18 04:23 12/09/18 04:28 Sodium Level 141 Potassium Level 3.1 L Chloride Level 106 Carbon Dioxide Level 24 Anion Gap 11 Blood Urea Nitrogen 12 Creatinine 0.78 Est Glomerular Filtrat Rate mL/min > 60 Glucose Level 116 Calcium Level 9.7 White Blood Count 9.0 Red Blood Count 5.24 Hemoglobin 10.2 L Hematocrit 36.6 L Mean Corpuscular Volume 69.8 L Mean Corpuscular Hemoglobin 19.5 L Mean Corpuscular Hemoglobin Concent 27.9 L Red Cell Distribution Width 26.0 H Platelet Count 237 Mean Platelet Volume Immature Granulocytes % 0.700 H Neutrophils % 71.2 Lymphocytes % 19.5 Monocytes % 6.6 Eosinophils % 1.2 Basophils % 0.8 Nucleated Red Blood Cells % 0.3 H Immature Granulocytes # 0.060 H Neutrophils # 6.4 Lymphocytes # 1.8 Monocytes # 0.6 Eosinophils # 0.1 Basophils # 0.1 Nucleated Red Blood Cells # 0.0 Medications Medication Current Medications Nicotine (Nicoderm 21 Mg/ 24hr) 1 patch DAILY TRANSDERM ; Start 12/05/18 at 09:00 Pantoprazole (Protonix Tab) 40 mg DAILY@06 PO Last administered on 12/09/18 05:50; Admin Dose 40 MG; Start 12/05/18 at 06:00 Metoclopramide HCl (Reglan) 5 mg Q8 PRN PO NAUSEA AND/OR VOMITING Last adm inistered on 12/09/18 05:52; Admin Dose 5 MG; Start 12/05/18 at 01:30 Ondansetron HCl (Zofran Inj) 4 mg Q6H PRN IV NAUSEA AND/OR VOMITING; Start 12/05/18 at 01:30 Triamcinolone Acetonide (Kenalog In Orabase) 1 applic DAILY PRN MM dentures; Start 12/05/18 at 01:30 Miscellaneous Information Patients own medicat... BID@10,16 XX ; Start 12/05/18 at 10:00 Ferric Sodium Gluconate Complex 125 mg/Sodium Chloride 110 ml @ 110 mls/hr DAILY@1300 IVPB Last administered on 12/07/18at 13:12; Admin Dose 110 MLS/HR; Start 12/06/18 at 17:00; Stop 12/10/18 at 13:59 Cyanocobalamin (Vitamin B12) 500 mcg DAILY PO ; Start 12/06/18 at 15:30 Acetaminophen (Tylenol Tab) 650 mg Q4H PRN PO MILD PAIN(1-3)OR ELEVATED TEMP Last administered on 12/07/18at 02:05; Admin Dose 650 MG; Start 12/06/18 at 17:30 Acetaminophen/ Butalbital/ Caffeine (Fioricet) 1 tab BID PRN PO migraine Last administered on 12/09/18at 12:28; Admin Dose 1 TAB; Start 12/07/18 at 18:00 Amylase/Lipase/ Protease (CREON (12k-57k-60k)) 1 cap WITH MEALS PO Last administered on 12/08/18at 07:53; Admin Dose 1 CAP; Start 12/07/18 at 18:00 Clonidine (Catapres) 0.1 mg Q6H PRN PO ELEVATED SYSTOLIC BP; Start 12/08/18 at 20:30 JOVANNY NUÑEZ MD Dec 09, 2018 14:51
[2018-12-09 20:00] VITALS: BP 147/107; PULSE 93; RESP 18
[2018-12-10] MEDS: PANTOPRAZOLE (EC) 40 MG TAB PO SCH (05:55)
[2018-12-10] MEDS: METOCLOPRAMIDE 5 MG TAB PO PRN (05:55)
[2018-12-10] MEDS: CREON (12k-38k-60k) 1 CAP PO SCH (08:00)
[2018-12-10] MEDS: ACET/BUTAL/CAFF TAB PO PRN ×2 (08:24)
[2018-12-10] MEDS: NICOTINE (21 MG/24 HR) PATCH TRANSDERM SCH (08:24)
[2018-12-10] MEDS: CYANOCOBALAMIN 500 MCG TAB PO SCH (08:25)
--- NOTE | 2018-12-10 15:18 | QN ---
Documentation Comment see dc summary by Tamiko addendum was added JOVANNY NUÑEZ MD Dec 10, 2018 15:18
== END 2018-12-10 11:40 | disposition home or self-care (01) | DRG 439 ==
LOC: PP2 22:18 → 5EC 12-05 15:17
PROVIDERS: ADMIT Internal Medicine Nephrology; ATTEND Internal Medicine Nephrology
PROC: 30233N1 Transfusion of Nonautologous Red Blood Cells into Peripheral Vein, Percutaneous Approach (ICD-10-PCS; principal; 2018-12-05)
DX: K85.90 Acute pancreatitis without necrosis or infection, unspecified (principal); E46 Unspecified protein-calorie malnutrition; Z68.1 Body mass index [BMI] 19.9 or less, adult; D50.9 Iron deficiency anemia, unspecified; F29 Unspecified psychosis not due to a substance or known physiological condition; F17.210 Nicotine dependence, cigarettes, uncomplicated; K21.9 Gastro-esophageal reflux disease without esophagitis; Z53.29 Procedure and treatment not carried out because of patient's decision for other reasons; Z90.3 Acquired absence of stomach [part of]; Z90.49 Acquired absence of other specified parts of digestive tract; Z86.73 Personal history of transient ischemic attack (TIA), and cerebral infarction without residual deficits; Z59.0 Homelessness; Z88.6 Allergy status to analgesic agent; Z88.5 Allergy status to narcotic agent
CPT/HCPCS: 36430; 70450; 71045; 80048; 80053; 80307; 81001; 82607; 82746; 83540; 83690; 83735; 84100; 84443; 85025; 85045; 86850; 86900; 86901; 86920; 87081; J1170; J1885; J2916; J7042; P9016